=== PATIENT | female | born 1975 | race Asian ===

== ENCOUNTER 2020-05-20 06:19 | Inpatient (IN) ==
[2020-05-20] MEDS ORDERED: NS 0.9% 1000 ml BAG 1,000 ML IV ONE (06:57)
[2020-05-20 07:26] LABS: ABS Basophils 0.1 10^3/ul (0-0.2); ABS Lymphocytes 1.4 10^3/ul (1.0-4.8); ABS Monocytes 1.2 10^3/ul (0-0.8); ABS Neutrophils 11.4 10^3/ul (1.5-7.7); Eosinophil % 0.2 %; Hematocrit 41 % (35-47); Hemoglobin 13.7 g/dL (12.0-16.0); Lymphocyte % 9.8 %; Mean Corpuscular HGB Conc 34 g/dL (31-36); Mean Corpuscular Hemoglobin 29 pg (27-31); Mean Corpuscular Volume 85 fL (80-97); Mean Platelet Volume 7.2 fL (7.4-10.4); Platelet Count 388 10^3/uL (150-450); Red Cell Distribution Width 14 % (10-15); White Blood Count 14.1 10^3/uL (3.5-10.8)
[2020-05-20 07:38] LABS: ALT 27 U/L (7-52); AST 25 U/L (13-39); Albumin 4.1 g/dL (3.2-5.2); Albumin/Globulin Ratio 1.2 (1-3); Alkaline Phosphatase 68 U/L (34-104); Anion Gap 7 mmol/L (2-11); BUN/Creatinine Ratio 15.1 (8-20); Blood Urea Nitrogen 11 mg/dL (6-24); CO2 Carbon Dioxide 27 mmol/L (22-32); Calcium 9.6 mg/dL (8.6-10.3); Chloride 101 mmol/L (101-111); EGFR African American 104.3 (>60); EGFR Non-African American 86.2 (>60); Globulin 3.4 g/dL (2-4); Glucose 97 mg/dL (70-100); Indirect Bilirubin 0.4 mg/dL (0.3-1.0); Lipase 29 U/L (11.0-82.0); Potassium 3.5 mmol/L (3.5-5.0); Sodium 135 mmol/L (135-145); Total Protein 7.5 g/dL (6.4-8.9)
[2020-05-20 07:44] LABS: HCG Pregnancy < 0.60 mIU/mL
[2020-05-20] MEDS ORDERED: Ondansetron 4 mg VIAL 2 MG/ML 2 ml VIAL IV ONE (07:46)
[2020-05-20] MEDS ORDERED: Morphine 4 MG/ML VIAL (1 ml) IV ONE ×3 (07:46→12:18)
[2020-05-20] MEDS ORDERED: Iohexol 300 (CONTRAST) 10 ML SDV IV ONE (08:13)
[2020-05-20 09:41] LABS: Urine Appearance Clear; Urine Bilirubin Negative (Negative); Urine Blood Negative (Negative); Urine Color Straw; Urine Glucose Negative (Negative); Urine Ketones Negative (Negative); Urine Nitrite Negative (Negative); Urine Protein Negative (Negative); Urine Specific Gravity 1.005 (1.010-1.030); Urine Urobilinogen Negative (Negative)
[2020-05-20] MEDS: Ondansetron 4 mg VIAL 2 MG/ML 2 ml VIAL IV PRN ×2 (12:52→19:46)
[2020-05-20] MEDS: Morphine 2 MG/ML SYRINGE IV PRN ×3 (12:52→22:26)
[2020-05-20] MEDS ORDERED: ZOSYN 3.375 GM x ONE DOSE over 30 miuntes IV (13:00)
[2020-05-20] MEDS: NS 0.9% 1000 ml BAG 1,000 ML IV SCH (13:35)
[2020-05-20] MEDS: Piperacillin/Tazobactam VIAL 3.375 GM in NS 0.9% 100 ml BAG 100 ML IVPB SCH (17:14)
[2020-05-20] MEDS ORDERED: NS 0.9% 1000 ML/HR X 1 BAG (TOTAL 1000 ML) IV ONE (22:45)
[2020-05-21] MEDS: NS 0.9% 1000 ml BAG 1,000 ML IV SCH (00:26)
[2020-05-21] MEDS: Piperacillin/Tazobactam VIAL 3.375 GM in NS 0.9% 100 ml BAG 100 ML IVPB SCH ×2 (00:27→08:26)
[2020-05-21 06:16] LABS: ABS Lymphocytes 1.4 10^3/ul (1.0-4.8); ABS Monocytes 1.1 10^3/ul (0-0.8); ABS Neutrophils 13.7 10^3/ul (1.5-7.7); Hematocrit 34 % (35-47); Hemoglobin 11.3 g/dL (12.0-16.0); Lymphocyte % 8.5 %; Mean Corpuscular HGB Conc 34 g/dL (31-36); Mean Corpuscular Hemoglobin 29 pg (27-31); Mean Corpuscular Volume 85 fL (80-97); Mean Platelet Volume 6.9 fL (7.4-10.4); Platelet Count 324 10^3/uL (150-450); Red Blood Count 3.93 10^6 /uL (3.70-4.87); Red Cell Distribution Width 14 % (10-15); White Blood Count 16.2 10^3/uL (3.5-10.8)
[2020-05-21 06:33] LABS: BUN/Creatinine Ratio 10.7 (8-20); Calcium 7.8 mg/dL (8.6-10.3); EGFR African American 141.6 (>60); EGFR Non-African American 117.1 (>60); Potassium 3.2 mmol/L (3.5-5.0)
[2020-05-21] MEDS: Ondansetron 4 mg VIAL 2 MG/ML 2 ml VIAL IV PRN ×2 (12:43→23:30)
[2020-05-21] MEDS: D5W 1/2 NS KCl 20 meq 1000 ml 1,000 ML IV SCH (14:36)
[2020-05-21] MEDS: KCL 20 MEQ/100 ML IVPREMIX 20 MEQ/100 ML BAG IV SCH ×2 (14:36→17:09)
[2020-05-21] MEDS ORDERED: ZOSYN 3.375 GM x ONE DOSE over 30 miuntes IV (17:00)
[2020-05-21] MEDS: Potassium Chlor 10 meq TAB PO SCH (19:48)
[2020-05-21] MEDS: Morphine 2 MG/ML SYRINGE IV PRN (19:49)
[2020-05-21] MEDS ORDERED: ZOSYN 3.375 GM Q8H per EXTENDED INFUSION IV SCH (23:00)
[2020-05-22] MEDS: D5W 1/2 NS KCl 20 meq 1000 ml 1,000 ML IV SCH ×2 (03:25→19:39)
[2020-05-22 06:00] LABS: ABS Lymphocytes 1.5 10^3/ul (1.0-4.8); ABS Monocytes 0.9 10^3/ul (0-0.8); ABS Neutrophils 11.7 10^3/ul (1.5-7.7); Eosinophil % 0.2 %; Hematocrit 34 % (35-47); Hemoglobin 11.3 g/dL (12.0-16.0); Lymphocyte % 10.8 %; Mean Corpuscular HGB Conc 34 g/dL (31-36); Mean Corpuscular Hemoglobin 29 pg (27-31); Mean Corpuscular Volume 86 fL (80-97); Mean Platelet Volume 7.3 fL (7.4-10.4); Nucleated Red Blood Cells % 0.1; Platelet Count 304 10^3/uL (150-450); Red Blood Count 3.92 10^6 /uL (3.70-4.87); Red Cell Distribution Width 14 % (10-15); White Blood Count 14.2 10^3/uL (3.5-10.8)
[2020-05-22 06:16] LABS: BUN/Creatinine Ratio 15.8 (8-20); Calcium 8.1 mg/dL (8.6-10.3); EGFR African American 138.8 (>60); EGFR Non-African American 114.7 (>60)
[2020-05-22] MEDS: ZOSYN 3.375 GM Q8H per EXTENDED INFUSION IV SCH ×3 (07:29→17:38)
[2020-05-22] MEDS: Potassium Chlor 10 meq TAB PO SCH ×2 (08:37→21:42)
[2020-05-22] MEDS: Morphine 2 MG/ML SYRINGE IV PRN ×3 (10:36→19:34)
[2020-05-22] MEDS ORDERED: Iohexol 300 (CONTRAST) 10 ML SDV IV ONE (11:39)
[2020-05-22 14:20] LABS: INR 1.19 (0.82-1.09)
[2020-05-22] MEDS ORDERED: Midazolam 2 mg/2 ml VIAL 1 mg/ml 2 ml VIAL (2 mg) ONE ×2 (14:58)
[2020-05-22] MEDS ORDERED: fentaNYL 100 mcg/2 ml 50 MCG/ML VIAL ONE (14:58)
[2020-05-22] MEDS: Ondansetron 4 mg VIAL 2 MG/ML 2 ml VIAL IV PRN (21:45)
[2020-05-23] MEDS: ZOSYN 3.375 GM Q8H per EXTENDED INFUSION IV SCH ×3 (02:17→18:12)
[2020-05-23] MEDS: Morphine 2 MG/ML SYRINGE IV PRN ×5 (03:31→15:17)
[2020-05-23] MEDS: D5W 1/2 NS KCl 20 meq 1000 ml 1,000 ML IV SCH (07:40)
[2020-05-23] MEDS: Potassium Chlor 10 meq TAB PO SCH ×2 (07:41→21:40)
[2020-05-24] MEDS: ZOSYN 3.375 GM Q8H per EXTENDED INFUSION IV SCH ×3 (03:13→13:26)
[2020-05-24 06:53] LABS: ABS Eosinophils 0.1 10^3/ul (0-0.6); ABS Monocytes 0.6 10^3/ul (0-0.8); Eosinophil % 1.5 %; Hematocrit 31 % (35-47); Hemoglobin 10.2 g/dL (12.0-16.0); Lymphocyte % 17.3 %; Mean Corpuscular HGB Conc 34 g/dL (31-36); Mean Corpuscular Hemoglobin 29 pg (27-31); Mean Corpuscular Volume 85 fL (80-97); Mean Platelet Volume 7.1 fL (7.4-10.4); Platelet Count 344 10^3/uL (150-450); Red Blood Count 3.58 10^6 /uL (3.70-4.87); Red Cell Distribution Width 14 % (10-15); White Blood Count 5.8 10^3/uL (3.5-10.8)
[2020-05-24 07:14] LABS: BUN/Creatinine Ratio 9.8 (8-20); Calcium 8.3 mg/dL (8.6-10.3); EGFR African American 157.8 (>60); EGFR Non-African American 130.4 (>60); Potassium 3.9 mmol/L (3.5-5.0)
[2020-05-24] MEDS: Potassium Chlor 10 meq TAB PO SCH ×2 (08:14→21:00)
[2020-05-24] MEDS: Morphine 2 MG/ML SYRINGE IV PRN (10:20)
[2020-05-24] MEDS: ZOSYN 3.375 GM IV SCH (21:26)
[2020-05-25] MEDS: ZOSYN 3.375 GM IV SCH ×4 (02:43→20:07)
[2020-05-25] MEDS: Morphine 2 MG/ML SYRINGE IV PRN (02:48)
[2020-05-25 05:52] LABS: ABS Eosinophils 0.1 10^3/ul (0-0.6); ABS Lymphocytes 1.1 10^3/ul (1.0-4.8); ABS Monocytes 0.6 10^3/ul (0-0.8); ABS Neutrophils 3.6 10^3/ul (1.5-7.7); Eosinophil % 1.7 %; Hematocrit 29 % (35-47); Hemoglobin 9.8 g/dL (12.0-16.0); Lymphocyte % 20.8 %; Mean Corpuscular HGB Conc 34 g/dL (31-36); Mean Corpuscular Hemoglobin 29 pg (27-31); Mean Corpuscular Volume 85 fL (80-97); Mean Platelet Volume 6.8 fL (7.4-10.4); Platelet Count 365 10^3/uL (150-450); Red Blood Count 3.39 10^6 /uL (3.70-4.87); Red Cell Distribution Width 14 % (10-15); White Blood Count 5.5 10^3/uL (3.5-10.8)
[2020-05-25 06:15] LABS: BUN/Creatinine Ratio 9.1 (8-20); Calcium 8.2 mg/dL (8.6-10.3); EGFR African American 144.6 (>60); EGFR Non-African American 119.5 (>60)
[2020-05-25] MEDS: Potassium Chlor 10 meq TAB PO SCH (08:33)
[2020-05-25] MEDS ORDERED: Glycerin ADULT 2.4 gm SUPP PR PRN (12:26)
[2020-05-25] MEDS: Senna TAB 8.6 mg TAB PO SCH ×2 (12:27→20:05)
[2020-05-25] MEDS: Polyethylene Glycol 3350 17 GM PACKET PO PRN (12:32)
[2020-05-26] MEDS: ZOSYN 3.375 GM IV SCH ×4 (02:34→20:04)
[2020-05-26] MEDS ORDERED: Sodium Phosphate ADULT ENEMA 133 ML BTL PR PRN (08:30)
[2020-05-26] MEDS: Senna TAB 8.6 mg TAB PO SCH ×2 (08:54→20:20)
[2020-05-26] MEDS: Polyethylene Glycol 3350 17 GM PACKET PO PRN (15:41)
[2020-05-26] MEDS ORDERED: Iohexol 350 (CONTRAST) 500 ML MDV IV ONE (20:23)
[2020-05-27] MEDS: ZOSYN 3.375 GM IV SCH ×2 (01:59→08:22)
[2020-05-27 07:29] VITALS: BP 113/76
[2020-05-27] MEDS: Senna TAB 8.6 mg TAB PO SCH (08:22)
== END 2020-05-27 11:42 | disposition home or self-care (01) | DRG 252 ==
LOC: ED 06:19 → SSU 06:19
PROVIDERS: ADMIT Surgery; ATTEND Surgery